=== PATIENT | male | born 1985 | race Caucasian/White ===

== ENCOUNTER 2019-02-17 06:14 | Day surgery (SDC) | payer OTHER ==
[2019-02-17] MEDS ORDERED: LACTATED RINGERS 1,000 ML IV ONE ×2 (06:35→09:20)
[2019-02-17] MEDS ORDERED: CEFAZOLIN SODIUM IN 0.9 % NACL 2 GM/100 ML BAG IV ONE (06:35)
[2019-02-17] MEDS ORDERED: BUPIVACAINE 0.25% PF 30 ML VIAL ONE (07:09)
[2019-02-17] MEDS ORDERED: EPINEPHrine 1 MG/ML AMP ONE (07:09)
--- NOTE | 2019-02-17 07:18 | ANESTHESIA ---
Pre-Anesthesia VS, & Labs - Diagnosis L knee meniscus tear - Procedure L knee arthroscopy, poss meniscus root repair Vital Signs: Temp Pulse Resp BP Pulse Ox 37.2 C 88 16 131/78 H 98 02/17/19 06:36 02/17/19 06:36 02/17/19 06:36 02/17/19 06:36 02/17/19 06:36 Height 6 ft Weight (kg) 94.9 kg - NPO >8 hours Home Medications and Allergies Home Medications: Ambulatory Orders Clindamycin Phos/Skin Clnsr 19 [Clindacin Etz Kit] 1 each TP DAILY 02/17/19 Sulfamethox/Trimeth 800/160 [Bactrim Ds 800/160] 1 each PO BID 02/17/19 Testosterone Cypionate [Depo-Testosterone] 100 mg IM 02/17/19 Clindamycin Phos/Skin Clnsr 19 [Clindacin Etz Kit] 1 each TP DAILY 02/17/19 Sulfamethox/Trimeth 800/160 [Bactrim Ds 800/160] 1 each PO BID 02/17/19 Testosterone Cypionate [Depo-Testosterone] 100 mg IM 02/17/19 Allergies/Adverse Reactions: Allergies Allergy/AdvReac Type Severity Reaction Status Date / Time morphine Allergy Hives Verified 02/17/19 07:00 Penicillins AdvReac Hives Verified 02/17/19 07:00 Anes History & Medical History - Anesthetic History Anesthesia Complications: reports: No previous complications Family history of Anesthesia Complications: Denies Family history of Malignant Hyperthermia: Denies - Medical History Cardiovascular: reports: None Pulmonary: reports: None Gastrointestinal: reports: None Urinary: reports: Renal insuffiency, Other (L kidney failing. Atrophy.) Musculoskeletal: reports: Osteoarthritis Endocrine/Autoimmune: reports: None Skin: reports: None Smoking Status: Current some day smoker (vape) Psychosocial: reports: No issues indicated - Surgical History General: Splenectomy Exam General: Alert, Oriented x3, Cooperative Dental: WNL Mouth Opening: Greater than 4 Fingerbreadths Neck Mobility: Normal Mallampati classification: II Thyromental Distance: 4-6 cm Respiratory: Lungs clear, Normal breath sounds, No respiratory distress Cardiovascular: Regular rate Neurological: Normal speech Mental/Cognitive Status: Alert/Oriented X3, Normal for patient Cognitive Status: Within normal limits Plan Anesthesia Type: General, Femoral Block (possible w/ root repair) Consent for Procedure(s) Verified and Reviewed: Yes Code Status: Attempt Resuscitation ASA classification: 2-Mild systemic disease Is this case an emergency?: No
[2019-02-17] MEDS ORDERED: DEXAMETHASONE 4 MG/ML VIAL IVP ONE (07:30)
[2019-02-17] MEDS ORDERED: fentaNYL 100 MCG/2 ML VIAL IVP ONE (07:30)
[2019-02-17] MEDS ORDERED: MIDAZOLAM 2 MG/2 ML VIAL IVP ONE (07:30)
[2019-02-17] MEDS ORDERED: PROPOFOL 200 MG/20 ML VIAL IVP ONE ×2 (07:30→09:15)
[2019-02-17] MEDS ORDERED: ONDANSETRON 4 MG/2 ML VIAL IVP ONE (09:15)
[2019-02-17] MEDS ORDERED: BUPIVACAINE 0.25% PF 30 ML VIAL SUBQ ONE (09:30)
[2019-02-17] MEDS ORDERED: ONDANSETRON 4 MG/2 ML VIAL IVP PRN (09:48)
--- NOTE | 2019-02-17 10:05 | OPERATIVE REPORT ---
Operative Report - Other Other Information/Narrative: Date of Surgery: 17 February 2019 Pre-Op Diagnosis: Left knee medial meniscus root tear. History of ACL reconstruction. Procedure: Arthroscopic left knee medial meniscus root repair Postop Diagnosis: Same Primary Surgeon: Primo Garcia Secondary Surgeon: Gavin Garcia Complications: None Tourniquet Time: 101 minutes EBL: 10 cc Indication For Surgery: 33-year-old male who had an ACL reconstruction and partial anterior horn medial meniscus debridement 8 years ago. He had a secondary surgery for debridement of a partial tear of the ACL in 2011 and they did not note a medial meniscus root tear. He has reported pain for the last year or so with some mechanical sensations. The pain is posterior medial. He was found to have a complete root tear. He denies any ACL instability and is relatively pleased with the function of his knee. We discussed the potential for root repair or meniscus debridement if it was not repairable. He was indicated for surgical management to restore hoop stresses and preserve his knee function. The risks, benefits, and alternatives were discussed. Risks include pain, bleeding, infection, damage to nearby structures and cartilage, lack of symptom relief, need for further surgery, DVT, PE, stroke, and . Written consent was obtained. Examination Under Anesthesia: ROM was 0 to 130 degrees which is slightly less flexion in the contralateral side. Stable dial at 30 & 90 degrees. Stable to varus and valgus stressing at 0 & 30 degrees. 2A Jose. Mild glide on Pivot shift. No mechanical sensation Arthroscopic Findings: No loose bodies. Synovium normal. Patella cartilage had grade 2/3 cartilage lesions on the medial facet. Trochlear cartilage was softened. Medial femoral condyle cartilage had 2 areas of partial-thickness, grade 2/3, cartilage wear measuring approximately 10 mm x 15 mm in total. Medial tibial plateau cartilage grade 1 softening throughout with couple areas of small grade 2 changes. Medial meniscus complete posterior horn root tear yet the attachment to the capsule remained intact and a portion of the meniscal femoral ligament remain. ACL graft showed some torn and frayed fibers but overall appeared functional. PCL was normal. Lateral femoral condyle cartilage normal. Lateral tibial plateau cartilage normal. Lateral meniscus normal. Procedure in Detail: The patient was met in the pre-operative hold area on the day of the procedure. The operative extremity was signed and questions were answered. The patient was brought to the operating room and a general anesthetic was administered. Supine position was used and bony prominences were padded. An examination under anesthesia was performed. Standard prepping and draping was performed. A time out confirmed patient identification, laterality, procedure, allergies, antibiotics, and images. An Esmarch was used to exsanguinate the limb and the tourniquet was elevated to 250 mmHg. A standard diagnostic arthroscopy of the knee was performed through anterolateral and anteromedial portal sites. The anteromedial portal was created under direct visualization after localizing with a spinal needle. The findings can be found above. I then proceeded to use a shaver and a radiofrequency ablation wand to remove some synovium surrounding the PCL and allow for better visualization through the notch. I then used a shaver to debride any loose fibrous tissue around the root site. The anatomic position of the root was well visualized. A biter was used to remove the free edge of the meniscus that appeared loose. Passport was then placed through the medial portal to allow for suture management. I then used the meniscal scorpion to place to fiber link sutures at the root. They were spaced approximately 5 mm and one was near the leading edge allowing for to be pulled into the socket. Th e free end of suture was passed through the loop and a cinch stitch construct was created. I then opened up his prior ACL incision and sharply and bluntly dissected down to the medial tibia. I then placed the root repair aiming guide into the back of the knee at the anatomic location of the root. It was clicked into place appropriately and the 6 mm flip cutter was brought into the joint. Satisfied with the location I then flipped and created a 10 mm socket. The wire was then brought up in through the tunnel and the sutures were brought down through the tibia. I then pulled on the suture and watch the medial meniscus dunked into the socket. The knee was then cycled 20 times and I individually tightened the sutures to remove all slack out of the suture meniscus interface. Once the me niscus was pulled down into the socket no fluid was able to pass out of the tunnel location. I then cleared a portion of the medial tibia, drilled for the swivel lock, tensioned and marked the sutures appropriately, and then placed to swivel lock. I then went back into the joint arthroscopically and confirmed that the root was well within the socket and was stable on probing. Final images were taken and all arthroscopic fluid and instruments were removed from the knee. The incisions were closed with 2-0 Vicryl and buried monocryl sutures. Steri strips were applied. 15 cc of 0.25% Marcaine without epinephrine was injected near the portal sites. A sterile dressing and compression stocking was placed. A knee range of motion brace was placed locked in full extension. The patient was awakened and transferred to recovery in stable condition.
[2019-02-17] MEDS: fentaNYL 100 MCG/2 ML VIAL ONE ×2 (10:09→10:15)
[2019-02-17] MEDS ORDERED: ACETAMINOPHEN 1,000 MG/100 ML 100 ML IV ONE (10:18)
[2019-02-17] MEDS ORDERED: HYDROmorphone 1 MG/ML CARPUJECT ONE (10:30)
[2019-02-17] MEDS: oxyCODONE 5 MG TABLET PO PRN ×2 (10:47→11:23)
[2019-02-17] MEDS ORDERED: oxyCODONE 5 MG TABLET ONE ×2 (10:56→11:32)
[2019-02-17 11:39] VITALS: BP 121/69
== END 2019-02-17 06:15 | disposition home or self-care (01) ==
LOC: SDS 06:14 → EDBD 07:30
PROVIDERS: ATTEND Orthopaedic Surgery
PROC: 0SQD4ZZ Repair Left Knee Joint, Percutaneous Endoscopic Approach (ICD-10-PCS; principal; 2019-02-17 07:30)
DX: M23.222 Derangement of posterior horn of medial meniscus due to old tear or injury, left knee (principal); T84.410A Breakdown (mechanical) of muscle and tendon graft, initial encounter; M22.42 Chondromalacia patellae, left knee; Y83.2 Surgical operation with anastomosis, bypass or graft as the cause of abnormal reaction of the patient, or of later complication, without mention of misadventure at the time of the procedure; F17.290 Nicotine dependence, other tobacco product, uncomplicated
CPT/HCPCS: 29882; A9270; C1713; J0131; J0690; J1170; J7120

== ENCOUNTER 2019-02-21 23:20 | Emergency (ER) | payer OTHER ==
--- NOTE | 2019-02-22 01:04 | ED Physician Documentation ---
PD HPI WOUND RECHECK - Stated complaint Stated Complaint: POST OP PX - Chief complaint Chief Complaint: General - Histroy obtained from History obtained from: Patient - History of Present Illness Location: Left Lower Extremity (knee pain, 5 days post op. Had been on pain meds and being able to taper down use, but still using meds several daily, last was earlier today.) Associated symptoms: No: Fever, Redness, Swelling (has compressive stocking and knee brace on as directed. No noted edema. No drainage through dressing. Has follow up appt in 2 days.) Recently seen: Surgery (knee surgery 5 days ago) Review of Systems Constitutional: denies: Fever, Chills, Myalgias GI: denies: Nausea, Vomiting, Diarrhea Musculoskeletal: denies: Extremity swelling PD PAST MEDICAL HISTORY - Past Medical History Cardiovascular: None Respiratory: None Endocrine/Autoimmune: None GI: None : Renal insuffiency, Other (L kidney failing. Atrophy.) HEENT: None Psych: None Musculoskeletal: Osteoarthritis Derm: None - Past Surgical History General: Splenectomy - Present Medications Home Medications: Ambulatory Orders Medication Instructions Recorded Confirmed Clindamycin Phos/Skin Clnsr 19 1 each TP DAILY 02/17/19 02/17/19 [Clindacin Etz Kit] Sulfamethox/Trimeth 800/160 1 each PO BID 02/17/19 02/17/19 [Bactrim Ds 800/160] Testosterone Cypionate 100 mg IM 02/17/19 [Depo-Testosterone] Acetaminophen [Tylenol] 650 mg PO Q6H PRN #30 tab 02/22/19 oxyCODONE [Roxicodone] 5 mg PO Q4-6H PRN #20 tablet 02/22/19 - Allergies Allergies/Adverse Reactions: Allergies Allergy/AdvReac Type Severity Reaction Status Date / Time morphine Allergy Hives Verified 02/17/19 07:00 Penicillins AdvReac Hives Verified 02/17/19 07:00 - Social History Smoking Status: Current some day smoker (vape) PD ED PE NORMAL - Vitals Vital signs reviewed: Yes - General General: Alert and oriented X 3, No acute distress, Well developed/nourished - Derm Derm: Normal color, Warm and dry - Extremities Extremities: Other (left knee with knee brace, dressing and compressive sock lower leg. No edema nor calf pain. No noted drainage on dressing. Dressing and brace left in place (articulating brace, so dressing is visible) as per Ortho direction to patient. ) Results - Vitals Vitals: Oxygen O2 Source Room air PD MEDICAL DECISION MAKING - ED course Complexity details: considered differential (no calf pain nor edema in lower leg. Out of pain meds. Presume persistent post op pain and can give Rx for short term until f/u in few days as planned. ), d/w patient Departure - Departure Disposition: 01 Home, Self Care Clinical Impression: Postoperative pain of knee Condition: Stable Record reviewed to determine appropriate education?: Yes Follow-Up: Primo Garcia MD [Primary Care Provider] - Prescriptions: Acetaminophen [Tylenol] 650 mg PO Q6H PRN #30 tab PRN Reason: Pain oxyCODONE [Roxicodone] 5 mg PO Q4-6H PRN #20 tablet PRN Reason: Pain Comments: Continue the current knee brace and compression sock, etc. At Tylenol 3-4 times a day regularly for the next week. To that continue the oxycodone as needed for pains. Follow-up with your orthopedic surgeon clinic Thursday as planned Discharge Date/Time: 02/22/19 02:11
[2019-02-22] MEDS ORDERED: oxyCODONE/ACET 5/325 Prepack 4 PO STA (01:34)
[2019-02-22] MEDS ORDERED: ACETAMINOPHEN 325 MG TABLET PO STA (01:34)
[2019-02-22 02:12] VITALS: BP 138/82
== END 2019-02-22 02:11 | disposition home or self-care (01) ==
LOC: ED 23:20
DX: G89.18 Other acute postprocedural pain (principal); M25.562 Pain in left knee; F17.290 Nicotine dependence, other tobacco product, uncomplicated
CPT/HCPCS: 99282; 99283; A9270

== ENCOUNTER 2021-07-12 11:47 | Outpatient (CLI) | payer OTHER ==
--- NOTE | 2021-07-12 12:48 | CT Report ---
PROCEDURE: Abdomen/Pelvis WO INDICATIONS: ABD PAIN TECHNIQUE: Noncontrast 5 mm thick sections acquired from the diaphragms to the symphysis. 5 mm coronal and sagi ttal reformats were then performed. For radiation dose reduction, the following was used: automated exposure control, adjustment of mA and/or kV according to patient size. COMPARISON: None. FINDINGS: Inferior chest: No focal consolidation, pleural effusion, or pneumothorax. No cardiomegaly or perica rdial effusion. Gallbladder: The gallbladder is distended with a smooth wall. Biliary tree: No intra-or extrahepatic biliary ductal dilatation. Liver: The liver demonstrates normal appearance. Spleen: Splenules are seen. Pancreas: Normal morphology without masses or inflammatory changes. Adrenals: Normal size without masses. Kidneys: Malrotation the left kidney with atrophy. No contour deforming solid masses or evidence of o bstructive uropathy. Vasculature: No evidence of aneurysm or other significant vascular pathology. Lymphatic system: No pathologic enlargement by size criteria. Bowel: No intestinal obstruction. Normal appendix. Peritoneum/Retroperitoneum: No free intraperitoneal gas or large collection. Urinary bladder: The urinary bladder is distended with a smooth thin wall. Pelvic organs: No significant abnormality. Bones/soft tissues: No significant osseous abnormality. An 8.5 mm fascial defect is seen adjacent to the left rectus muscle (3-65). IMPRESSION: 1.Fat-containing left ventral hernia as detailed above. Reviewed by: Aravind Reeves MD on 07/12/2021 12:47 PM [facility] Approved by: Aravind Reeves MD on 07/12/2021 12:47 PM PST Station ID: [id number]
== END 2021-07-12 11:48 | disposition home or self-care (01) ==
LOC: DI 11:47
PROVIDERS: ATTEND Surgery
DX: K43.9 Ventral hernia without obstruction or gangrene (principal)

== ENCOUNTER 2021-09-25 22:24 | Emergency (ER) | payer OTHER ==
[2021-09-25] MEDS ORDERED: oxyCODONE 5 MG TABLET PO STA (22:58)
--- NOTE | 2021-09-26 01:27 | XRAY Report ---
PROCEDURE: Ankle 3 View RT INDICATIONS: Injury TECHNIQUE: 3 views of the ankle were acquired. COMPARISON: None. FINDINGS: Bones: No fractures or dislocations. Ankle mortise is normally aligned. No suspicious bony lesions . Soft tissues: No tibiotalar joint effusion. Achilles tendon appears normal. IMPRESSION: 1. No fracture or dislocation. Reviewed by: Tion Cardona MD on 09/26/2021 1:26 AM PDT Approved by: Tino Cardona MD on 09/26/2021 1:26 AM PDT Station ID: [id number]
[2021-09-26] MEDS ORDERED: HYDROcod/ACET 5/325 Prepack 4 PO STA (01:35)
--- NOTE | 2021-09-26 01:41 | ED Physician Documentation ---
PD HPI LOWER EXT INJURY - Stated complaint Stated Complaint: RT LEG PX - Chief complaint Chief Complaint: Trauma Ext - Additional information Additional information: Patient 35-year-old male presenting to the emergency department with right leg injury. Struck in the leg earlier today with baseball. Reports prominent swelling. Denies other orthopedic injuries to the same extremity. Review of Systems Ten Systems: 10 systems reviewed and negative Constitutional: denies: Fever Eyes: denies: Loss of vision Cardiac: denies: Chest pain / pressure Respiratory: denies: Dyspnea PD PAST MEDICAL HISTORY - Past Medical History Past Medical History: Yes Cardiovascular: None Respiratory: None Endocrine/Autoimmune: None GI: None : Renal insuffiency, Other HEENT: None Psych: None Musculoskeletal: Osteoarthritis Derm: None - Past Surgical History Past Surgical History: Yes General: Splenectomy Ortho: Arthroscopic surgery - Present Medications Home Medications: Ambulatory Orders Medication Instructions Recorded Confirmed Clindamycin Phos/Skin Clnsr 19 1 each TP DAILY 02/17/19 02/17/19 [Clindacin Etz Kit] Sulfamethox/Trimeth 800/160 1 each PO BID 02/17/19 02/17/19 [Bactrim Ds 800/160] Testosterone Cypionate 100 mg IM 02/17/19 [Depo-Testosterone] Acetaminophen [Tylenol] 650 mg PO Q6H PRN #30 tab 02/22/19 oxyCODONE [Roxicodone] 5 mg PO Q4-6H PRN #20 tablet 02/22/19 - Allergies Allergies/Adverse Reactions: Allergies Allergy/AdvReac Type Severity Reaction Status Date / Time morphine Allergy Hives Verified 09/25/21 22:35 Penicillins AdvReac Hives Verified 09/25/21 22:35 - Social History Does the pt smoke?: Yes Smoking Status: Current every day smoker PD ED PE NORMAL - General General: Alert and oriented X 3 - HEENT HEENT: Atraumatic - Neck Neck: Supple, no meningeal sign - Cardiac Cardiac: RRR - Respiratory Respiratory: No respiratory distress - Extremities Extremities: Other (Prominent hematoma over the medial aspect of the left calf approximately 4 cm proximal to the medial malleolus. Normal range of motion of the right knee and ankle. DP and PT pulses palpable.) Results - Vitals Vitals: Vital Signs - 24 hr 09/25/21 09/26/21 22:35 01:35 Temperature 36.6 C Heart Rate 87 57 L Respiratory 16 18 Rate Blood Pressure 158/94 H 140/94 H O2 Saturation 98 98 Oxygen O2 Source Room air PD MEDICAL DECISION MAKING - ED course Complexity details: reviewed results, d/w patient ED course: With injury to his right ankle. Prominent hematoma with normal range of motion and otherwise neurovascularly intact. Given medication for pain. X-rays negat samson for fracture. Provided with Vicodin starter pack for pain control. Encouraged elevation, ice packs, compression wraps as needed for resolution of his hematoma. Otherwise clear return precautions and follow-up instructions given prior to discharge. Departure - Departure Disposition: Home, Self Care Clinical Impression: Ankle injury Comments: Thank you for allowing us to care for you this evening at [facility]. X-rays taken of your right ankle did not show any fracture. You do have a very prominent hematoma. I recommend regular ice packs and keeping your injured leg elevated is much as possible in order to decrease swelling and thereby decrease pain. I will be discharging you with a few pain pills for use at home. Please be aware that these are both sedating and habit-forming. Please do not take them if you are operating a motor vehicle, using heavy machinery or you are the sole alkylation operator of young children. Please drink plenty of fluid and get plenty of rest over the course the next few days. If anytime you develop any new or worsening symptoms please not hesitate to return.
[2021-09-26 02:10] VITALS: BP 138/91
== END 2021-09-26 02:09 | disposition home or self-care (01) ==
LOC: ED 22:24
DX: S90.01XA Contusion of right ankle, initial encounter (principal); W21.03XA Struck by baseball, initial encounter; F17.200 Nicotine dependence, unspecified, uncomplicated
CPT/HCPCS: 73610; 99282; 99283; A9270

== ENCOUNTER 2021-11-14 08:52 | Day surgery (SDC) | payer OTHER ==
[~2021-11-14 08:52] MED LIST: CLINDAMYCIN 900 MG/50 ML 50 ML IV ONE
[2021-11-14] MEDS ORDERED: LACTATED RINGERS 1,000 ML IV ONE (09:07)
--- NOTE | 2021-11-14 09:42 | ANESTHESIA ---
Pre-Anesthesia VS, & Labs - Diagnosis LEFT ABDOMINAL WALL SPIGELIAN HGERNIA - Procedure OPEN ABDOMINAL WALL HERNIA REPAIR Vital Signs: Temp Pulse Resp BP Pulse Ox 36.8 C 63 16 143/89 H 96 11/14/21 09:08 11/14/21 09:08 11/14/21 09:08 11/14/21 09:08 11/14/21 09:08 Height: 6 ft Weight (kg): 100.9 kg Body Mass Index: 30.2 BMI Classification: Obese - NPO >8 hours Home Medications and Allergies Allergies/Adverse Reactions: Allergies Allergy/AdvReac Type Severity Reaction Status Date / Time morphine Allergy Hives Verified 11/14/21 08:37 NSAIDS (Non-Steroidal AdvReac Unknown Verified 11/14/21 09:24 Anti-Inflamma Penicillins AdvReac Hives Verified 11/14/21 08:37 Anes History & Medical History - Anesthetic History Anesthesia Complications: reports: No previous complications Family history of Anesthesia Complications: Denies - Medical History Cardiovascular: reports: None Pulmonary: reports: None Gastrointestinal: reports: None Urinary: reports: Kidney stones, Other (LEFT KIDNEY ENLARGEMENT) Neuro: reports: None Musculoskeletal: reports: Other (MULTIPLE LEFT KNEE SURGERIES) Endocrine/Autoimmune: reports: None Blood Disorders: reports: None Skin: reports: None Smoking Status: Current every day smoker (SMOKER DAILY UNTIL 2013; VAPES CURRENTLY EVERY DAY) Psychosocial: reports: No issues indicated History of Cancer?: No - Surgical History General: reports: Splenectomy Orthopedic: reports: Arthroscopic surgery Exam General: Alert, Oriented x3, Cooperative, No acute distress Dental: Partials Lower, Other (SCREWS IN PLACE - WAITING FOR PROSTHETIC PLACEMENT) Mouth Opening: Greater than 4 Fingerbreadths Neck Mobility: Normal Mallampati classification: I Thyromental Distance: 4-6 cm Respiratory: Lungs clear, Normal breath sounds Cardiovascular: Regular rate, Normal S1, Normal S2, No murmurs Mental/Cognitive Status: Alert/Oriented X3, Normal for patient Cognitive Status: Within normal limits Plan Anesthesia Type: General Consent for Procedure(s) Verified and Reviewed: Yes Code Status: Attempt Resuscitation ASA classification: 2-Mild systemic disease Is this case an emergency?: No
[2021-11-14] MEDS ORDERED: BUPIVACAINE 0.5% PF 30 ML VIAL ONE (10:01)
[2021-11-14] MEDS ORDERED: BUPIVACAINE 0.25% PF 10 ML VIAL ONE (10:01)
[2021-11-14] MEDS ORDERED: ONDANSETRON 4 MG/2 ML VIAL ONE (10:04)
[2021-11-14] MEDS ORDERED: DEXAMETHASONE 4 MG/ML VIAL ONE (10:04)
[2021-11-14] MEDS ORDERED: ROCURONIUM 50 MG/5 ML VIAL ONE ×2 (10:04→11:24)
[2021-11-14] MEDS ORDERED: fentaNYL 100 MCG/2 ML VIAL ONE ×2 (10:04→12:50)
[2021-11-14] MEDS ORDERED: PROPOFOL 200 MG/20 ML VIAL IVP ONE (10:04)
[2021-11-14] MEDS ORDERED: LIDOCAINE-MPF 2% 5 ML VIAL ONE (10:04)
[2021-11-14] MEDS ORDERED: MIDAZOLAM 2 MG/2 ML VIAL ONE (10:05)
--- NOTE | 2021-11-14 10:44 | HISTORY & PHYSICAL EXAMINATION ---
Chief Complaint - Chief Complaint Chief Complaint: left abdominal wall lump History of Present Illness - History Obtained From Records Reviewed: yes History obtained from: pt Exam Limitations: none - History of Present Illness HPI Comment/Other: left lower quadrant incarcerated hernia. getting worse History - Past Medical History Cardiovascular: reports: None Respiratory: reports: None Neuro: reports: None Endocrine/Autoimmune: reports: None GI: reports: None : reports: Kidney stones, Other (LEFT KIDNEY ENLARGEMENT) HEENT: reports: None Psych: reports: Anxiety Musculoskeletal: reports: Other (MULTIPLE LEFT KNEE SURGERIES) Derm: reports: None MRSA Hx?: No - Past Surgical History General: reports: Splenectomy Ortho: reports: Arthroscopic surgery Meds/Allgy - Home Medications Home Medications: Ambulatory Orders Medication Instructions Recorded Confirmed Acetaminophen [Tylenol] 650 mg PO Q6H PRN #30 tab 02/22/19 11/14/21 - Allergies Allergies/Adverse Reactions: Allergies Allergy/AdvReac Type Severity Reaction Status Date / Time morphine Allergy Hives Verified 11/14/21 08:37 NSAIDS (Non-Steroidal AdvReac Unknown Verified 11/14/21 09:24 Anti-Inflamma Penicillins AdvReac Hives Verified 11/14/21 08:37 Review of Systems - Other Findings Other Findings: 10 pt ros as above otherwise normal Exam - Vital Signs Reviewed Vital Signs: Yes Vital Signs: Vital Signs x48h Temp Pulse Resp BP Pulse Ox 11/14/21 09:08 36.8 C 63 16 143/89 H 96 - Physical Exam General Appearance: positive: No acute distress, Alert Eyes Bilateral: positive: PERRL, EOMI, No scleral icterus ENT: positive: No signs of dehydration Neck: positive: No JVD Respiratory: positive: No respiratory distress, Breath sounds nml Cardiovascular: positive: Regular rate & rhythm Abdomen: positive: Non-tender, No distention Neurologic/Psychiatric: positive: Oriented x3 Conclusion/Plan - Problem List (1) Ventral hernia Conclusion/Plan: plan open repair with mesh. parq held and consent obtained
[2021-11-14] MEDS ORDERED: BUPIVACAINE 0.25% PF 30 ML VIAL SUBQ ONE (10:53)
[2021-11-14] MEDS ORDERED: LACTATED RINGERS 800 ML IV ONE (12:08)
[2021-11-14] MEDS ORDERED: SUGAMMADEX 200 MG/2 ML VIAL IVP ONE (12:19)
[2021-11-14] MEDS ORDERED: fentaNYL 100 MCG/2 ML VIAL IVP PRN (12:20)
[2021-11-14] MEDS ORDERED: NALOXONE 0.4 MG/ML VIAL IVP PRN (12:20)
[2021-11-14] MEDS ORDERED: HYDROmorphone 0.5 MG/0.5 ML SYRINGE IVP PRN (12:20)
[2021-11-14] MEDS ORDERED: ATROPINE ABBOJECT 1 MG/10 ML SYRINGE IVP PRN (12:20)
[2021-11-14] MEDS ORDERED: ONDANSETRON 4 MG/2 ML VIAL IVP PRN ×2 (12:20→12:25)
[2021-11-14] MEDS ORDERED: oxyCODONE 5 MG TABLET PO PRN (12:25)
--- NOTE | 2021-11-14 12:31 | OPERATIVE REPORT ---
Operative Report - General Procedure Date: 11/14/21 Planned Procedure: open repair incarcerated left lower quadrant hernia Pre-Op Diagnosis: incarcerated left lower quadrant hernia Procedure Performed: open repair incarcerated left lower quadrant ventral hernia Post Op Diagnosis: same - Procedure Note Primary Surgeon: bernabe aviles Anesthesia Technique: General ET tube, Local Pathology: not sent Estimated Blood Loss (mL): 1 Drain/Tube Type: Other (none) Indications: painful hernia bulge Findings: as above. incarcerated adipose tissue removed Complications: none - Other Other Information/Narrative: The patient was properly identified brought to the operating room and placed in supine position. Sequential compression devices were placed. General en dotracheal anesthesia was induced. He was prepped and draped in a sterile fashion and given preoperative antibiotics. The area of hernia in the left lower quadrant was previously marked. The hernia was lateral to the rectus and approximately 4 cm caudad to the umbilicus. An incision was made in the direction of Leroy's lines directly over the hernia. Dissection proceeded with cutting current. Fascia of the external oblique was opened in the direction of its fibers. Incarcerated adipose tissue was mobilized from underneath the fascia. It was mobilized to a defect within the internal Bleich measuring approximately 2 cm. The internal Bleich was opened in the direction of its fibers. Defect in the transversus abdominis was identified. Incarcerated adipose tissue was removed. Hemostasis was assured. The transverses abdominis was closed with interrupted 0 Ethibond suture. 1-1/2 x 2-1/2 inch polypropylene mesh was used. Interrupted sutures were used to secure the mesh and close the internal oblique fascia. Fascia of the external oblique was closed with interrupted 0 Ethibond suture. Subcutaneous tissue was closed with interrupted 2-0 Vicryl suture. Buried interrupted subdermal 3-0 Vicryl sutures were then placed. Skin was closed with a running 4-0 Monocryl subcuticular suture. Steri-Strips and dressing were applied. He tolerated the procedure well.
[2021-11-14] MEDS ORDERED: HYDROmorphone 0.5 MG/0.5 ML SYRINGE ONE (12:46)
[2021-11-14] MEDS ORDERED: LACTATED RINGERS 1,000 ML IV SCH (13:00)
[2021-11-14] MEDS ORDERED: oxyCODONE 5 MG TABLET ONE (13:17)
[2021-11-14 13:23] VITALS: BP 135/97
--- NOTE | 2021-11-14 16:37 | ANESTHESIA POST OP EVALUATION ---
Anesthesia Post Eval - Post Anesthesia Eval Vitals: Last Vital Signs Temp 36.8 C 11/14/21 13:22 Pulse 68 11/14/21 13:22 Resp 14 11/14/21 13:22 BP 135/97 H 11/14/21 13:22 Pulse Ox 94 11/14/21 13:22 CV Function Including HR & BP: Stable Pain Control: Satisfactory Nausea & Vomiting: Negative Mental Status: Baseline Respiratory Status: Airway Patent Hydration Status: Satisfactory Anesthesia Complications: None
== END 2021-11-14 08:53 | disposition home or self-care (01) ==
LOC: SDS 08:52
PROVIDERS: ATTEND Surgery
DX: K43.6 Other and unspecified ventral hernia with obstruction, without gangrene (principal); E66.9 Obesity, unspecified; F17.290 Nicotine dependence, other tobacco product, uncomplicated; Z68.30 Body mass index [BMI] 30.0-30.9, adult; Z88.0 Allergy status to penicillin; Z88.5 Allergy status to narcotic agent; Z88.8 Allergy status to other drugs, medicaments and biological substances
CPT/HCPCS: 49561; 49568; A9270; C1781; J1170; J7120

== ENCOUNTER 2021-11-26 14:25 | Outpatient (CLI) | payer OTHER ==
--- NOTE | 2021-11-26 20:09 | MRI Report ---
PROCEDURE: Knee LT W/O INDICATIONS: LEFT KNEE MENISCUS DERANGEMENTS TECHNIQUE: Noncontrast sagittal PD fast spin echo and T2 fast spin echo with fat saturation, sagittal 3-D spoile d GE with fat saturation; coronal T1 spin echo and PD fast spin echo with fat saturation, and axial P D fast spin echo with fat saturation through the knee. COMPARISON: None. FINDINGS: Image quality: Excellent. Anterior cruciate ligament: Postsurgical changes are seen from prior anterior cruciate ligament shandra nstruction using a double bundle technique. The femoral tunnels are located at approximately the 2:00 position in the intercondylar notch with the more superior orifice approximately 7 mm from the inter section of the posterior femoral cortex with Blumensaat's line. The tibial tunnels are located in the anterior to middle thirds of the central tibial plateau. The anterior cruciate ligament graft is int act. There is no significant arthrofibrosis. Posterior cruciate ligament: Intact. Medial collateral ligament: Intact. Lateral collateral ligament: Intact. Medial meniscus: Postsurgical changes from fixation of the posterior root attachment of the medial m eniscus. Metallic artifact obscures the meniscal tissue in the region of the femoral attachment. Ther e is minimal extrusion of the meniscal body beyond the femorotibial joint. The visualized portions of the medial meniscus are intact. Lateral meniscus: Intact. Medial and lateral tendons: The semimembranosus tendon insertions appear intact. Visualized portion s of the pes anserinus tendons appear normal. The popliteus tendon appears intact. Iliotibial band appears normal. Anterior structures: The quadriceps and patellar tendons appear intact. A mildly congenitally shallo w trochlear groove is seen without patellar subluxation. No edema in the infrapatellar fat pad. Bones: No acute trabecular bone injury or fracture. Medial femorotibial cartilage: Deep cartilage fissuring is seen in the posterior weightbearing porti on of the medial femoral condyle. Lateral femorotibial cartilage: Intact. Patellofemoral cartilage: Intact. Soft tissues: There is a small joint effusion. There is a trace medial popliteal cyst. The musculat ure surrounding the knee is normal in bulk. IMPRESSION: 1.Postsurgical changes from anterior cruciate ligament the lateral reconstruction with intact ligamen t grafts. 2.Postsurgical changes from fixation of the posterior root attachment of the medial meniscus. No recu rrent medial meniscal tear is seen, although the posterior root attachment is obscured by metal artif act. There is minimal extrusion of the meniscal body beyond the femorotibial joint line. 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 4.Focal deep cartilage fissuring in the posterior weightbearing portion of the medial femoral condyle . Articular cartilages are otherwise grossly intact. 5.Small joint effusion. Reviewed by: Trell Teixeira MD on 11/26/2021 8:08 PM PDT Approved by: Trell Teixeira MD on 11/26/2021 8:08 PM PDT Station ID: [email or web address]
== END 2021-11-26 14:26 | disposition home or self-care (01) ==
LOC: DI 14:25
DX: M23.92 Unspecified internal derangement of left knee (principal); M23.304 Other meniscus derangements, unspecified medial meniscus, left knee; M25.462 Effusion, left knee